=== PATIENT | male | born 1955 | race Caucasian/White ===

== ENCOUNTER 2022-09-28 14:02 | Emergency (ER) | payer OTHER, MEDICARE ==
[2022-09-28] MEDS ORDERED: Flecainide Acet50 MG PO (14:28)
[2022-09-28] MEDS ORDERED: DIGOX250 MCG PO (14:28)
[2022-09-28] MEDS ORDERED: METO50ER PO (14:28)
[2022-09-28] MEDS ORDERED: HYDR1TAB94 PO (17:21)
== END 2022-09-28 17:56 | disposition home or self-care (01) ==
DX: S32.020A Wedge compression fracture of second lumbar vertebra, initial encounter for closed fracture (principal); S20.212A Contusion of left front wall of thorax, initial encounter; V48.6XXA Car passenger injured in noncollision transport accident in traffic accident, initial encounter; Z79.899 Other long term (current) drug therapy